=== PATIENT | male | born 1995 | race American Indian/Alaskan Native ===

== ENCOUNTER 2019-07-27 14:23 | Emergency (ER) | payer MEDICAID ==
[~2019-07-27] VITALS: Ht 175.3 cm; Wt 71.0 kg
[~2019-07-27 14:23] MED LIST: FOLI1TAB16 PO; LEVE500T PO; PHEN100C4 PO
[2019-07-27] MEDS ORDERED: LORazepam 2 mg/ml vial IV ONE (14:40)
[2019-07-27] MEDS ORDERED: normal saline 1000ML IV soln IVB ONE (14:40)
[2019-07-27] MEDS ORDERED: magnesium 2GM in 50ml NS 50 ML IV ONE (14:40)
[2019-07-27 15:17] LABS: ALANINE AMINOTRANSFERASE 22 U/L (12-78); ALBUMIN 4.4 G/DL (3.4-5.0); ALBUMIN/GLOBULIN RATIO 1.5 (1.1-1.5); ALKALINE PHOSPHATASE 128 IU/L (46-116); ANION GAP 12 (8-16); ASPARTATE AMINO TRANSFERASE 12 U/L (10-37); BASOPHILS % (AUTO) 0.4 % (0-1); BILIRUBIN,TOTAL 0.3 MG/DL (0.1-1.0); BLOOD UREA NITROGEN 13 MG/DL (7-18); BUN/CREATININE RATIO 16.9 (5.4-32.0); CALCIUM 9.1 MG/DL (8.5-10.1); CHLORIDE 104 MMOL/L (99-107); CREATININE 0.77 MG/DL (0.60-1.10); EOSINOPHILS # (AUTO) 0.1 X10'3 (0-0.9); EOSINOPHILS % (AUTO) 0.8 % (0-6); GLUCOSE 149 MG/DL (70-104); HEMATOCRIT 42.4 % (42.0-52.0); HEMOGLOBIN 14.7 g/dl (14.0-17.9); LYMPHOCYTES # (AUTO) 0.7 X10'3 (1.1-4.8); LYMPHOCYTES % (AUTO) 9.1 % (21-51); MAGNESIUM 1.9 MG/DL (1.5-2.4); MEAN CORPUSCULAR HEMOGLOBIN 31.8 PG (27.0-31.0); MEAN CORPUSCULAR HGB CONC 34.8 g/dL (33.0-36.5); MEAN CORPUSCULAR VOLUME 91.4 FL (78-98); MEAN PLATELET VOLUME 8.1 FL (7.4-10.4); MONOCYTES # (AUTO) 0.5 X10'3 (0-0.9); MONOCYTES % (AUTO) 6.8 % (2-12); NEUTROPHILS # (AUTO) 6.3 X10'3 (1.8-7.7); NEUTROPHILS % (AUTO) 82.9 % (42-75); PLATELET COUNT 190 X10'3 (140-440); POTASSIUM 3.9 MMOL/L (3.5-5.1); RED BLOOD COUNT 4.64 X10'6 (4.70-6.10); RED CELL DISTRIBUTION WIDTH 13.4 % (11.5-14.5); SODIUM 143 MMOL/L (135-145); TOTAL CARBON DIOXIDE 26.9 MMOL/L (24-32); TOTAL PROTEIN 7.3 G/DL (6.4-8.2); WHITE BLOOD COUNT 7.5 X10'3 (4.5-11.0); eGFR > 90 ML/MIN
[2019-07-27 15:18] LABS: ETHANOL < 0.010 GM/DL (0.0-0.010)
--- NOTE | 2019-07-27 16:17 | NUR ---
PT UP AT BEDSIDE VOIDING WITH TECH PRESENT FOR STABILITY.
[2019-07-27 17:12] LABS: CLARITY,URINE CLEAR (Clear); COLOR,URINE YELLOW (Yellow); GLUCOSE, URINE NEGATIVE (Neg); KETONES,URINE NEGATIVE (Neg); LEUKOCYTE ESTERASE ,URINE NEGATIVE (Neg); NITRITES, URINE NEGATIVE (Neg); OCCULT BLOOD,URINE NEGATIVE (Neg); PH,URINE 6.5 (4.8-8.0); PROTEIN,URINE 30 mg/dl (Neg); UROBILINOGEN,URINE 0.2 E.U/dL (0.2-1.0)
[2019-07-27 17:14] LABS: UA COLLECTION TYPE URINAL
[2019-07-27 17:18] LABS: SQUAMOUS EPITHELIAL CELL,UR FEW /LPF (FEW)
[2019-07-27 17:22] LABS: URINE AMPHETAMINE SCREEN NEGATIVE (Neg); URINE BARBITUATE SCREEN NEGATIVE (Neg); URINE BENZODIAZEPINES SCREEN NEGATIVE (Neg); URINE CANNABINOID SCREEN POSITIVE (Neg); URINE COCAINE SCREEN NEGATIVE (Neg); URINE METHADONE SCREEN NEGATIVE (Neg); URINE OPIATE SCREEN NEGATIVE (Neg); URINE PHENCYCLIDINE SCREEN NEGATIVE (Neg)
[2019-07-27 17:24] LABS: BACTERIA,URINE NONE SEEN /HPF (Neg); RBC,URINE NONE SEEN /HPF (0-2); WBC,URINE NONE SEEN /HPF (0-4)
--- NOTE | 2019-07-27 18:20 | NUR ---
Received report from previous RN. Pending pt discharge after 3rd NS IV bolus and 2gm Magnesium sulfate IV administered. Pt and pt's mother updated on current plan of treatment. Sz precautions maintained at this time, side rails, sz pads and bed in lowest position. All questions/concerns addressed at this time.
[2019-07-27 20:03] VITALS: BP 128/66
== END 2019-07-27 20:05 | disposition home or self-care (01) ==
LOC: ER 14:23
DX: G40.909 Epilepsy, unspecified, not intractable, without status epilepticus (principal); Z79.899 Other long term (current) drug therapy
CPT/HCPCS: 36415; 80053; 80305; 80320; 81001; 83735; 85025; 93005; 96365; 96375; 99284; J2060; J3475; J7030

== ENCOUNTER 2023-03-28 21:23 | Emergency (ER) | payer MEDICAID ==
[~2023-03-28] VITALS: Ht 180.3 cm; Wt 77.3 kg
[~2023-03-28 21:23] MED LIST changes: -FOLI1TAB16 PO; +FOLI1TAB27 PO
[2023-03-28 21:31] VITALS: TEMP 97.9
[2023-03-28] MEDS ORDERED: ceFAZolin/D5W- 1GM premix 50 ML IV ONE (22:40)
[2023-03-28] MEDS ORDERED: ceFAZolin 1gm IM kit IM ONE (23:15)
[2023-03-28] MEDS ORDERED: ketorolac trometh. 30mg/ml inj. IV ONE (23:40)
[2023-03-28] MEDS ORDERED: bacitracin 15gm ointment TP ONE (23:40)
[2023-03-28] MEDS ORDERED: ondansetron 4mg rapidly disintigrating tab PO ONE (23:40)
[2023-03-28] MEDS ORDERED: HYDROcodone/acetaminophen 10/325mg tab PO ONE (23:40)
[2023-03-28] MEDS ORDERED: AMOX-115 PO (23:42)
[2023-03-28] MEDS ORDERED: HYDR-3973 PO (23:42)
[2023-03-29 00:01] VITALS: BP 121/75; PULSE 68; RESP 16; O2SAT 99
== END 2023-03-29 00:03 | disposition home or self-care (01) ==
LOC: ER 21:24
DX: S62.630B Displaced fracture of distal phalanx of right index finger, initial encounter for open fracture (principal); Z79.2 Long term (current) use of antibiotics; Z79.899 Other long term (current) drug therapy; W26.8XXA Contact with other sharp object(s), not elsewhere classified, initial encounter; Y93.89 Activity, other specified; Y92.89 Other specified places as the place of occurrence of the external cause; Y99.8 Other external cause status
CPT/HCPCS: 12001; 73140; 96372; 96374; 99284; J0690; J1885

== ENCOUNTER 2023-10-24 10:32 | Emergency (ER) | payer MEDICAID ==
[~2023-10-24] VITALS: Ht 182.9 cm; Wt 80.0 kg
[2023-10-24] MEDS ORDERED: levetiracetam inj 1,000 MG in normal saline 100ml IV soln 90 ML IV ONE (10:50)
[2023-10-24 11:05] LABS: BASOPHILS % (AUTO) 0.1 % (0-1); EOSINOPHILS # (AUTO) 0.1 X10'3 (0-0.9); EOSINOPHILS % (AUTO) 0.3 % (0-6); HEMATOCRIT 46.8 % (42.0-52.0); HEMOGLOBIN 15.4 g/dl (14.0-17.9); LYMPHOCYTES # (AUTO) 1.3 X10'3 (1.1-4.8); LYMPHOCYTES % (AUTO) 5.5 % (21-51); MEAN CORPUSCULAR HEMOGLOBIN 31.6 PG (27.0-31.0); MEAN CORPUSCULAR HGB CONC 32.9 g/dL (33.0-36.5); MEAN CORPUSCULAR VOLUME 96.1 FL (78-98); MONOCYTES # (AUTO) 1.5 X10'3 (0-0.9); MONOCYTES % (AUTO) 6.4 % (2-12); NEUTROPHILS # (AUTO) 20.3 X10'3 (1.8-7.7); NEUTROPHILS % (AUTO) 87.7 % (42-75); PLATELET COUNT 271 X10'3 (140-440); RED BLOOD COUNT 4.87 X10'6 (4.70-6.10); RED CELL DISTRIBUTION WIDTH 13.2 % (11.5-14.5); WHITE BLOOD COUNT 23.2 X10'3 (4.5-11.0)
[2023-10-24 11:21] LABS: BILIRUBIN,URINE NEGATIVE (Neg); CLARITY,URINE CLEAR (Clear); COLOR,URINE YELLOW (Yellow); GLUCOSE, URINE NEGATIVE (Neg); KETONES,URINE NEGATIVE (Neg); LEUKOCYTE ESTERASE ,URINE NEGATIVE (Neg); NITRITES, URINE NEGATIVE (Neg); OCCULT BLOOD,URINE MODERATE (Neg); PROTEIN,URINE 100 mg/dl (Neg); UROBILINOGEN,URINE 0.2 E.U/dL (0.2-1.0)
[2023-10-24] MEDS: levetiracetam inj 1,000 MG in normal saline 100ml IV soln 100 ML IV ONE (11:25)
[2023-10-24 11:26] LABS: ALBUMIN 4.8 G/DL (3.4-5.0); ANION GAP 28 (8-16); BLOOD UREA NITROGEN 12 MG/DL (7-18); CALCIUM 8.6 MG/DL (8.5-10.1); CHLORIDE 102 MMOL/L (99-107); ETHANOL < 10 MG/DL (<10); GLUCOSE 149 MG/DL (70-104); SODIUM 142 MMOL/L (135-145); eGFR 73 ML/MIN
[2023-10-24 11:27] LABS: POTASSIUM 4.3 MMOL/L (3.5-5.1)
[2023-10-24 11:29] VITALS: TEMP 98.2
[2023-10-24 11:29] LABS: UA COLLECTION TYPE STRAIGHT CATH
[2023-10-24 11:29] LABS: TOTAL CARBON DIOXIDE 11.9 MMOL/L (24-32)
[2023-10-24 11:30] LABS: BACTERIA,URINE NONE SEEN /HPF (Neg); MUCUS STRANDS FEW /LPF (Neg); SQUAMOUS EPITHELIAL CELL,UR FEW /LPF (FEW); WBC,URINE 0-4 /HPF (0-4)
[2023-10-24 11:33] LABS: URINE AMPHETAMINE SCREEN NEGATIVE (Neg); URINE BARBITUATE SCREEN NEGATIVE (Neg); URINE BENZODIAZEPINES SCREEN POSITIVE (Neg); URINE CANNABINOID SCREEN POSITIVE (Neg); URINE COCAINE SCREEN NEGATIVE (Neg); URINE METHADONE SCREEN NEGATIVE (Neg); URINE OPIATE SCREEN NEGATIVE (Neg); URINE PHENCYCLIDINE SCREEN NEGATIVE (Neg)
[2023-10-24 12:40] LABS: CREATINE KINASE 124 U/L (39-308)
[2023-10-24] MEDS: normal saline 1000ml 1,000 ML IV ONE ×2 (13:32→13:33)
[2023-10-24] MEDS: ondansetron/PF 4mg/2ml inj IV ONE (17:23)
[2023-10-24 17:55] LABS: ALBUMIN 4.3 G/DL (3.4-5.0); ANION GAP 10 (8-16); BLOOD UREA NITROGEN 12 MG/DL (7-18); BUN/CREATININE RATIO 12.6 (10.0-20.0); CALCIUM 8.3 MG/DL (8.5-10.1); CHLORIDE 107 MMOL/L (99-107); CREATININE 0.95 MG/DL (0.60-1.10); GLUCOSE 117 MG/DL (70-104); POTASSIUM 4.1 MMOL/L (3.5-5.1); SODIUM 143 MMOL/L (135-145); eCRCL 129 ML/MIN; eGFR > 90 ML/MIN
[2023-10-24] MEDS ORDERED: LAMO200T10 PO (18:26)
[2023-10-24] MEDS ORDERED: PHEN100C4 PO (18:26)
[2023-10-24] MEDS ORDERED: LAMO200T2 PO (18:26)
[2023-10-24] MEDS ORDERED: LACO100T2 PO (18:27)
[2023-10-24] MEDS ORDERED: KEP500T PO (18:27)
[2023-10-24] MEDS ORDERED: ONDA4TAB12 PO (18:29)
[2023-10-24 19:07] VITALS: BP 118/70; PULSE 77; RESP 16; O2SAT 97
== END 2023-10-24 19:09 | disposition home or self-care (01) ==
LOC: ER 10:32
DX: R56.9 Unspecified convulsions (principal); J45.909 Unspecified asthma, uncomplicated; E11.9 Type 2 diabetes mellitus without complications; E78.00 Pure hypercholesterolemia, unspecified; Z86.73 Personal history of transient ischemic attack (TIA), and cerebral infarction without residual deficits; J44.9 Chronic obstructive pulmonary disease, unspecified; I25.2 Old myocardial infarction; Z79.899 Other long term (current) drug therapy
CPT/HCPCS: 36415; 71045; 80048; 80305; 80320; 81001; 82550; 82948; 83880; 84145; 84484; 85025; 93005; 96365; 96366; 96375; 99285; J1953; J2405; J3490; J7030; C1758

== ENCOUNTER 2024-01-28 19:14 | Inpatient (IN) | payer MEDICAID ==
[~2024-01-28] VITALS: Ht 175.3 cm; Wt 76.0 kg
[~2024-01-28 19:14] MED LIST changes: +KEP500T PO; +LACO100T2 PO; +LAMO200T10 PO; +ONDA4TAB12 PO
[2024-01-28 20:34] LABS: URINE AMPHETAMINE SCREEN NEGATIVE (Neg); URINE BARBITUATE SCREEN NEGATIVE (Neg); URINE BENZODIAZEPINES SCREEN NEGATIVE (Neg); URINE CANNABINOID SCREEN POSITIVE (Neg); URINE COCAINE SCREEN NEGATIVE (Neg); URINE METHADONE SCREEN NEGATIVE (Neg); URINE PHENCYCLIDINE SCREEN NEGATIVE (Neg)
[2024-01-28] MEDS: normal saline 1000ML IV soln IVB ONE (20:35)
[2024-01-28 20:39] LABS: BASOPHILS % (AUTO) 0.1 % (0-1); EOSINOPHILS % (AUTO) 0.1 % (0-6); HEMATOCRIT 42.6 % (42.0-52.0); HEMOGLOBIN 14.1 g/dl (14.0-17.9); LYMPHOCYTES # (AUTO) 0.6 X10'3 (1.1-4.8); LYMPHOCYTES % (AUTO) 3.7 % (21-51); MEAN CORPUSCULAR HEMOGLOBIN 30.3 PG (27.0-31.0); MEAN CORPUSCULAR HGB CONC 33.2 g/dL (33.0-36.5); MEAN CORPUSCULAR VOLUME 91.3 FL (78-98); MEAN PLATELET VOLUME 7.8 FL (7.4-10.4); MONOCYTES # (AUTO) 0.5 X10'3 (0-0.9); MONOCYTES % (AUTO) 3.3 % (2-12); NEUTROPHILS # (AUTO) 14.8 X10'3 (1.8-7.7); NEUTROPHILS % (AUTO) 92.8 % (42-75); PLATELET COUNT 227 X10'3 (140-440); RED BLOOD COUNT 4.67 X10'6 (4.70-6.10); WHITE BLOOD COUNT 15.9 X10'3 (4.5-11.0)
[2024-01-28 20:49] LABS: ALBUMIN 4.3 G/DL (3.4-5.0); ANION GAP 11 (8-16); BLOOD UREA NITROGEN 12 MG/DL (7-18); BUN/CREATININE RATIO 11.4 (10.0-20.0); CALCIUM 9.6 MG/DL (8.5-10.1); CHLORIDE 102 MMOL/L (99-107); CREATININE 1.05 MG/DL (0.60-1.10); ETHANOL < 10 MG/DL (<10); GLUCOSE 115 MG/DL (70-104); POTASSIUM 3.9 MMOL/L (3.5-5.1); SODIUM 138 MMOL/L (135-145); TOTAL CARBON DIOXIDE 24.7 MMOL/L (24-32); eCRCL 107 ML/MIN; eGFR 85 ML/MIN
[2024-01-28] MEDS: diazepam inj 5 MG/ML inj. IV ONE (20:52)
[2024-01-28] MEDS: levetiracetam inj 1,000 MG in normal saline 100ml IV soln 100 ML IV ONE (20:54)
[2024-01-29] MEDS ORDERED: levetiracetam inj 2,000 MG in normal saline 100ml IV soln 100 ML IV ONE (01:00)
[2024-01-29] MEDS: MIDAZolam 5mg/ml 2ml vial IV ONE (01:04)
[2024-01-29] MEDS: levetiracetam inj 2,000 MG in normal saline 250ml IV soln 250 ML IV ONE (01:39)
[2024-01-29] MEDS ORDERED: magnesium 4gm in 100ml NS 100 ML IV PRN (03:00)
[2024-01-29] MEDS ORDERED: magnesium hydroxide 30ml (MOM) UD suspension PO PRN (03:00)
[2024-01-29] MEDS ORDERED: magnesium Cl slow-release 64mg tablet PO PRN (03:00)
[2024-01-29] MEDS ORDERED: mag hydrox/Alum hydrox/simeth 30ml oral suspension PO PRN (03:00)
[2024-01-29] MEDS ORDERED: potassium Cl 40MEQ/1/2NS 520ml 520 ML IV PRN (03:00)
[2024-01-29] MEDS ORDERED: potassium Cl 20 mEq SR tablet PO PRN (03:00)
[2024-01-29] MEDS ORDERED: magnesium 2GM in 50ml NS 50 ML IV PRN (03:00)
[2024-01-29] MEDS ORDERED: acetaminophen 325mg tablet PO PRN (03:00)
[2024-01-29] MEDS: normal saline 1000ml 1,000 ML IV SCH (03:09)
[2024-01-29] MEDS ORDERED: diazepam inj 5 MG/ML inj. IV PRN (04:00)
[2024-01-29 04:17] LABS: MAGNESIUM 2.1 MG/DL (1.5-2.4)
[2024-01-29 04:20] LABS: POTASSIUM 4.1 MMOL/L (3.5-5.1)
[2024-01-29 04:21] LABS: PHENYTOIN (DILANTIN) < 0.5 UG/ML (10.0-20.0)
[2024-01-29 07:40] VITALS: BP 117/55; PULSE 79; RESP 18; TEMP 98.9; O2SAT 97
[2024-01-29 08:00] VITALS: RESP 16; O2SAT 97
[2024-01-29] MEDS: docusate sod 100mg capsule PO SCH (08:00)
[2024-01-29] MEDS: phenytoin sod ER 100mg capsule PO SCH (08:00)
[2024-01-29] MEDS: K and/or MAG REPLACEMENT MC SCH (08:00)
[2024-01-29] MEDS: levetiracetam 250mg tablet PO SCH (08:09)
[2024-01-29] MEDS: lamoTRIgine 100mg tablet PO SCH (08:09)
[2024-01-29 12:30] VITALS: BP 137/75; PULSE 56; RESP 16; TEMP 98.7; O2SAT 95
[2024-01-29] MEDS ORDERED: LORazepam 2 mg/ml vial IV SCH (12:30)
[2024-01-29] MEDS ORDERED: midazolam 1 mg/ML 2ml injection IV SCH (12:37)
[2024-01-29] MEDS: diazepam inj 5 MG/ML inj. IV SCH (12:59)
[2024-01-29] MEDS: ringers solution, lacted 1,000 ML IV SCH (13:00)
[2024-01-29] MEDS: ringers solution, lacted 1,000 ML IV ONE (13:43)
[2024-01-29] MEDS: CefTRIAXone/D5W-Rocephin 1gm 50 ML IV SCH (13:55)
[2024-01-29 14:41] LABS: ALANINE AMINOTRANSFERASE 21 U/L (12-78); ALBUMIN 3.7 G/DL (3.4-5.0); ALBUMIN/GLOBULIN RATIO 1.2 (1.1-1.5); ALKALINE PHOSPHATASE 79 IU/L (46-116); ANION GAP 7 (8-16); ASPARTATE AMINO TRANSFERASE 6 U/L (10-37); BILIRUBIN,TOTAL 0.7 MG/DL (0.1-1.0); BLOOD UREA NITROGEN 10 MG/DL (7-18); BUN/CREATININE RATIO 15.4 (10.0-20.0); CALCIUM 8.4 MG/DL (8.5-10.1); CHLORIDE 103 MMOL/L (99-107); CREATININE 0.65 MG/DL (0.60-1.10); GLUCOSE 103 MG/DL (70-104); POTASSIUM 3.3 MMOL/L (3.5-5.1); SODIUM 136 MMOL/L (135-145); TOTAL CARBON DIOXIDE 26.4 MMOL/L (24-32); TOTAL PROTEIN 6.8 G/DL (6.4-8.2); eCRCL 172 ML/MIN; eGFR > 90 ML/MIN
[2024-01-29 14:44] LABS: CREATINE KINASE 128 U/L (39-308); PHOSPHORUS 2.6 MG/DL (2.3-4.5); THYROID STIMULATING HORMONE 0.41 ulU/ml (0.34-4.50)
[2024-01-29 14:45] LABS: PHENYTOIN (DILANTIN) < 0.5 UG/ML (10.0-20.0)
[2024-01-29 15:57] LABS: BILIRUBIN,URINE NEGATIVE (Neg); CLARITY,URINE CLEAR (Clear); COLOR,URINE STRAW (Yellow); GLUCOSE, URINE NEGATIVE (Neg); KETONES,URINE NEGATIVE (Neg); LEUKOCYTE ESTERASE ,URINE NEGATIVE (Neg); NITRITES, URINE NEGATIVE (Neg); OCCULT BLOOD,URINE TRACE-INTACT (Neg); PROTEIN,URINE NEGATIVE (Neg); UROBILINOGEN,URINE 0.2 E.U/dL (0.2-1.0)
[2024-01-29 16:14] LABS: UA COLLECTION TYPE CLN CATCH MIDSTREAM
[2024-01-29 16:15] LABS: BACTERIA,URINE NONE SEEN /HPF (Neg); SQUAMOUS EPITHELIAL CELL,UR FEW /LPF (FEW)
[2024-01-29 16:16] LABS: RBC,URINE 0-2 /HPF (0-2); WBC,URINE 0-4 /HPF (0-4)
[2024-01-29] MEDS: potassium Cl 20 mEq SR tablet PO PRN (16:39)
[2024-01-29 18:00] VITALS: BP 125/66; PULSE 64; RESP 16; TEMP 98.6; O2SAT 98
[2024-01-29 22:00] VITALS: BP 114/60; PULSE 65; RESP 16; TEMP 98.1; O2SAT 97
[2024-01-30 06:41] LABS: BASOPHILS % (AUTO) 0.3 % (0-1); EOSINOPHILS # (AUTO) 0.1 X10'3 (0-0.9); HEMATOCRIT 41.9 % (42.0-52.0); HEMOGLOBIN 13.9 g/dl (14.0-17.9); LYMPHOCYTES # (AUTO) 1.5 X10'3 (1.1-4.8); LYMPHOCYTES % (AUTO) 17.5 % (21-51); MEAN CORPUSCULAR HEMOGLOBIN 30.8 PG (27.0-31.0); MEAN CORPUSCULAR HGB CONC 33.2 g/dL (33.0-36.5); MEAN CORPUSCULAR VOLUME 92.7 FL (78-98); MEAN PLATELET VOLUME 8.3 FL (7.4-10.4); MONOCYTES # (AUTO) 0.8 X10'3 (0-0.9); MONOCYTES % (AUTO) 9.1 % (2-12); NEUTROPHILS # (AUTO) 6.2 X10'3 (1.8-7.7); NEUTROPHILS % (AUTO) 72.1 % (42-75); PLATELET COUNT 174 X10'3 (140-440); RED BLOOD COUNT 4.52 X10'6 (4.70-6.10); RED CELL DISTRIBUTION WIDTH 13.1 % (11.5-14.5); WHITE BLOOD COUNT 8.6 X10'3 (4.5-11.0)
[2024-01-30 07:04] LABS: ALANINE AMINOTRANSFERASE 25 U/L (12-78); ALBUMIN 3.6 G/DL (3.4-5.0); ALBUMIN/GLOBULIN RATIO 1.1 (1.1-1.5); ALKALINE PHOSPHATASE 74 IU/L (46-116); ANION GAP 7 (8-16); ASPARTATE AMINO TRANSFERASE 10 U/L (10-37); BILIRUBIN,TOTAL 0.7 MG/DL (0.1-1.0); BLOOD UREA NITROGEN 7 MG/DL (7-18); BUN/CREATININE RATIO 9.3 (10.0-20.0); CALCIUM 8.7 MG/DL (8.5-10.1); CHLORIDE 107 MMOL/L (99-107); CREATININE 0.75 MG/DL (0.60-1.10); GLUCOSE 90 MG/DL (70-104); MAGNESIUM 1.9 MG/DL (1.5-2.4); POTASSIUM 3.9 MMOL/L (3.5-5.1); SODIUM 141 MMOL/L (135-145); TOTAL CARBON DIOXIDE 26.8 MMOL/L (24-32); TOTAL PROTEIN 6.9 G/DL (6.4-8.2); eCRCL 149 ML/MIN; eGFR > 90 ML/MIN
[2024-01-30 08:00] VITALS: RESP 16; O2SAT 96
[2024-01-30 10:25] VITALS: BP 120/60; PULSE 72; RESP 16; TEMP 97.9; O2SAT 99
[2024-01-30 17:28] VITALS: BP 120/60; PULSE 72; RESP 16; TEMP 97.9; O2SAT 99
[2024-01-30 18:00] VITALS: BP 120/71; PULSE 63; RESP 16; TEMP 98.3; O2SAT 100
[2024-01-30 22:00] VITALS: BP 123/73; PULSE 60; RESP 19; TEMP 97.7; O2SAT 99
[2024-01-31] MEDS: diazepam 5mg tablet PO SCH (02:33)
[2024-01-31 06:59] LABS: BASOPHILS % (AUTO) 0.5 % (0-1); EOSINOPHILS # (AUTO) 0.1 X10'3 (0-0.9); EOSINOPHILS % (AUTO) 2.1 % (0-6); HEMATOCRIT 42.6 % (42.0-52.0); HEMOGLOBIN 14.7 g/dl (14.0-17.9); LYMPHOCYTES # (AUTO) 1.1 X10'3 (1.1-4.8); LYMPHOCYTES % (AUTO) 20.7 % (21-51); MEAN CORPUSCULAR HEMOGLOBIN 31.1 PG (27.0-31.0); MEAN CORPUSCULAR HGB CONC 34.5 g/dL (33.0-36.5); MEAN CORPUSCULAR VOLUME 90.1 FL (78-98); MEAN PLATELET VOLUME 7.7 FL (7.4-10.4); MONOCYTES # (AUTO) 0.6 X10'3 (0-0.9); MONOCYTES % (AUTO) 10.9 % (2-12); NEUTROPHILS # (AUTO) 3.4 X10'3 (1.8-7.7); NEUTROPHILS % (AUTO) 65.8 % (42-75); PLATELET COUNT 173 X10'3 (140-440); RED BLOOD COUNT 4.73 X10'6 (4.70-6.10); WHITE BLOOD COUNT 5.2 X10'3 (4.5-11.0)
[2024-01-31 07:19] LABS: ALANINE AMINOTRANSFERASE 21 U/L (12-78); ALBUMIN 3.6 G/DL (3.4-5.0); ALBUMIN/GLOBULIN RATIO 1.1 (1.1-1.5); ALKALINE PHOSPHATASE 73 IU/L (46-116); ANION GAP 7 (8-16); ASPARTATE AMINO TRANSFERASE 4 U/L (10-37); BILIRUBIN,TOTAL 0.6 MG/DL (0.1-1.0); BLOOD UREA NITROGEN 9 MG/DL (7-18); BUN/CREATININE RATIO 13.2 (10.0-20.0); CALCIUM 8.7 MG/DL (8.5-10.1); CHLORIDE 106 MMOL/L (99-107); CREATININE 0.68 MG/DL (0.60-1.10); GLUCOSE 91 MG/DL (70-104); MAGNESIUM 1.9 MG/DL (1.5-2.4); POTASSIUM 3.8 MMOL/L (3.5-5.1); SODIUM 140 MMOL/L (135-145); TOTAL CARBON DIOXIDE 26.9 MMOL/L (24-32); TOTAL PROTEIN 6.9 G/DL (6.4-8.2); eCRCL 165 ML/MIN; eGFR > 90 ML/MIN
[2024-01-31 08:00] VITALS: RESP 18; O2SAT 96
[2024-01-31 12:23] VITALS: BP 115/53; PULSE 64; RESP 16; TEMP 97.4; O2SAT 96
[2024-01-31] MEDS ORDERED: LEVE250T PO (13:06)
[2024-01-31] MEDS ORDERED: PHEN100C4 PO (13:06)
[2024-01-31] MEDS ORDERED: LAMO100T PO (13:06)
== END 2024-01-31 13:30 | disposition home or self-care (01) | DRG 720 ==
LOC: ER 19:14 → ED HOLD 01-29 03:01 → ORTHO 4S 01-29 07:35
PROVIDERS: ADMIT Internal Medicine; ATTEND Family Medicine
PROC: 4A00X4Z Measurement of Central Nervous Electrical Activity, External Approach (ICD-10-PCS; principal; 2024-01-29)
DX: A41.9 Sepsis, unspecified organism (principal); F12.10 Cannabis abuse, uncomplicated; G40.909 Epilepsy, unspecified, not intractable, without status epilepticus; T42.6X6A Underdosing of other antiepileptic and sedative-hypnotic drugs, initial encounter; Y92.89 Other specified places as the place of occurrence of the external cause; Z79.899 Other long term (current) drug therapy
CPT/HCPCS: 36415; 70450; 71045; 80048; 80053; 80185; 80305; 80320; 81001; 82550; 82948; 83605; 83735; 84100; 84132; 84443; 85025; 87040; 87081; 93005; 95816; 96365; 96375; 99285; A4620; A6258; A6449; G0378; J0696; J1953; J3360; J3490; J7030; J7050; J7120

== ENCOUNTER 2024-06-03 10:48 | Emergency (ER) | payer MEDICAID ==
[~2024-06-03] VITALS: Ht 180.3 cm; Wt 72.7 kg
[~2024-06-03 10:48] MED LIST changes: -FOLI1TAB27 PO; -KEP500T PO; -LACO100T2 PO; +LAMO100T PO; -LAMO200T10 PO; +LEVE250T PO; -LEVE500T PO; -ONDA4TAB12 PO
[2024-06-03 13:02] VITALS: BP 140/74; PULSE 68; RESP 17; TEMP 98.5; O2SAT 97
== END 2024-06-03 13:04 | disposition home or self-care (01) ==
LOC: ER 10:49
DX: G40.909 Epilepsy, unspecified, not intractable, without status epilepticus (principal)
CPT/HCPCS: 99284

== ENCOUNTER 2024-10-05 11:07 | Emergency (ER) | payer MEDICAID ==
[~2024-10-05] VITALS: Ht 172.7 cm; Wt 75.0 kg
[~2024-10-05 11:07] MED LIST changes: -PHEN100C4 PO
[2024-10-05] MEDS: MIDAZolam 5mg/ml 2ml vial ONE (11:31)
[2024-10-05] MEDS: MIDAZolam 5mg/ml 2ml vial IV ONE (11:32)
[2024-10-05 11:58] LABS: BASOPHILS % (AUTO) 0.2 % (0-1); EOSINOPHILS % (AUTO) 0.1 % (0-6); HEMOGLOBIN 15.3 g/dl (14.0-17.9); LYMPHOCYTES # (AUTO) 0.7 X10'3 (1.1-4.8); LYMPHOCYTES % (AUTO) 3.6 % (21-51); MEAN CORPUSCULAR HEMOGLOBIN 31.8 PG (27.0-31.0); MEAN CORPUSCULAR VOLUME 93.3 FL (78-98); MEAN PLATELET VOLUME 8.2 FL (7.4-10.4); MONOCYTES # (AUTO) 0.8 X10'3 (0-0.9); MONOCYTES % (AUTO) 4.5 % (2-12); NEUTROPHILS # (AUTO) 17.2 X10'3 (1.8-7.7); NEUTROPHILS % (AUTO) 91.6 % (42-75); PLATELET COUNT 241 X10'3 (140-440); RED BLOOD COUNT 4.83 X10'6 (4.70-6.10); RED CELL DISTRIBUTION WIDTH 13.7 % (11.5-14.5); WHITE BLOOD COUNT 18.8 X10'3 (4.5-11.0)
[2024-10-05] MEDS: levetiracetamNACL 1500mg/100mL 100 ML IV STA (11:59)
[2024-10-05] MEDS: normal saline 1000ML IV soln IVB ONE (11:59)
[2024-10-05] MEDS: levetiracetam inj 1,500 MG in normal saline 100ml IV soln 100 ML IV STA (12:00)
[2024-10-05 12:13] LABS: ALANINE AMINOTRANSFERASE 25 U/L (12-78); ALBUMIN 4.7 G/DL (3.4-5.0); ALBUMIN/GLOBULIN RATIO 1.3 (1.1-1.5); ALKALINE PHOSPHATASE 113 IU/L (46-116); ANION GAP 16 (8-16); ASPARTATE AMINO TRANSFERASE 12 U/L (10-37); BILIRUBIN,TOTAL 0.4 MG/DL (0.1-1.0); BLOOD UREA NITROGEN 14 MG/DL (7-18); BUN/CREATININE RATIO 13.9 (10.0-20.0); CALCIUM 9.1 MG/DL (8.5-10.1); CHLORIDE 104 MMOL/L (99-107); CREATININE 1.01 MG/DL (0.60-1.10); GLUCOSE 135 MG/DL (70-104); POTASSIUM 4.1 MMOL/L (3.5-5.1); SODIUM 142 MMOL/L (135-145); TOTAL CARBON DIOXIDE 22.1 MMOL/L (24-32); TOTAL PROTEIN 8.3 G/DL (6.4-8.2); eGFR 89 ML/MIN
[2024-10-05 12:41] LABS: TOTAL CELLS COUNTED 100
[2024-10-05 12:42] LABS: PLATELET ESTIMATE NORMAL
[2024-10-05] MEDS ORDERED: CENO1TAB PO ×2 (12:56→13:29)
[2024-10-05 14:47] VITALS: BP 116/52; PULSE 109; RESP 16; TEMP 98.1; O2SAT 96
== END 2024-10-05 14:49 | disposition home or self-care (01) ==
LOC: ER 11:07
DX: R56.9 Unspecified convulsions (principal)
CPT/HCPCS: 36415; 70450; 80053; 84145; 85007; 85025; 96365; 99285; J1953; J7030; 99291; A4615; A6258; A6446; A6449

== ENCOUNTER 2025-02-10 15:36 | Inpatient (IN) | payer MEDICAID ==
[~2025-02-10] VITALS: Ht 175.3 cm; Wt 72.7 kg
[~2025-02-10 15:36] MED LIST changes: +CENO1TAB PO
[2025-02-10] MEDS: LORazepam 2 mg/ml vial IV ONE (16:19)
[2025-02-10] MEDS: LORazepam 2 mg/ml vial ONE (16:19)
[2025-02-10] MEDS: midazolam 1 mg/ML 2ml injection IV ONE (16:20)
[2025-02-10] MEDS: midazolam 1 mg/ML 2ml injection ONE (16:20)
[2025-02-10 16:32] LABS: ALANINE AMINOTRANSFERASE 28 U/L (12-78); ALBUMIN 4.2 G/DL (3.4-5.0); ALBUMIN/GLOBULIN RATIO 1.2 (1.1-1.5); ALKALINE PHOSPHATASE 112 IU/L (46-116); ANION GAP 26 (8-16); BILIRUBIN,TOTAL 0.8 MG/DL (0.1-1.0); BLOOD UREA NITROGEN 12 MG/DL (7-18); BUN/CREATININE RATIO 10.8 (10.0-20.0); CHLORIDE 101 MMOL/L (99-107); CREATININE 1.11 MG/DL (0.60-1.10); GLUCOSE 164 MG/DL (70-104); SODIUM 141 MMOL/L (135-145); TOTAL PROTEIN 7.8 G/DL (6.4-8.2); eCRCL 100 ML/MIN; eGFR 79 ML/MIN
[2025-02-10 16:36] LABS: BASOPHILS % (AUTO) 0.1 % (0-1); EOSINOPHILS % (AUTO) 0 % (0-6); HEMATOCRIT 40.8 % (42.0-52.0); HEMOGLOBIN 13.5 g/dl (14.0-17.9); LYMPHOCYTES # (AUTO) 0.3 X10'3 (1.1-4.8); LYMPHOCYTES % (AUTO) 1.2 % (21-51); MEAN CORPUSCULAR HEMOGLOBIN 30.6 PG (27.0-31.0); MEAN CORPUSCULAR VOLUME 92.9 FL (78-98); MEAN PLATELET VOLUME 7.8 FL (7.4-10.4); MONOCYTES # (AUTO) 1.3 X10'3 (0-0.9); NEUTROPHILS # (AUTO) 24.3 X10'3 (1.8-7.7); NEUTROPHILS % (AUTO) 93.7 % (42-75); PLATELET COUNT 203 X10'3 (140-440); RED BLOOD COUNT 4.39 X10'6 (4.70-6.10); RED CELL DISTRIBUTION WIDTH 13.6 % (11.5-14.5)
[2025-02-10 16:38] LABS: POTASSIUM 4.2 MMOL/L (3.5-5.1)
[2025-02-10 16:39] LABS: ASPARTATE AMINO TRANSFERASE 20 U/L (10-37)
--- NOTE | 2025-02-10 17:25 | Physician Documentation ---
History of Present Illness ~ Chief Complaint: Seizure Stated Complaint: SEIZURE Time Seen by MD: 15:41 Primary Medical Doctor: [facility], neurologist at [facility] Mode of Arrival: POV HPI 29 year old male brought in after a seizure. His family member is at the bedside reporting that he normally will seize several times per month. He is stable on several antiseizure medications and there have been no changes recently. He has not been ill or febrile. The patient is post-ictal on arrival and nonverbal. Medication Reconciliation Allergies: Coded Allergies: No Known Allergies (Unverified , 06/03/24) Scheduled Cenobamate (Xcopri), 1 TAB PO DAILY Lamotrigine (LaMICtal tablet), 100 MG PO BID Levetiracetam (Levetiracetam), 1,500 MG PO BID Past Medical History Past Medical History: Seizures Past Surgical History: noncontributory Patient History: No Family History of: (CABG) Coronary artery bypass grafting (CAD) Coronary arteriosclerosis (CHF) Congestive heart failure (COPD) Chronic obstructive lung disease (CVA) Cerebrovascular accident (Cancer) Malignant carcinoid tumor (DM Type 2) Diabetes mellitus type 2 (DM Type1) Diabetes mellitus type 1 ([place]) Myocardial infarction (PVD) Peripheral vascular disease (TIA) Transient ischemic attack Alzheimer's disease Aortic aneurysm Asthma Cardiac arrest Hypercholesterolemia Alcohol Use: None Drug Use: none Lives with: Mother Lives In: Home Review of Systems All Other Systems at this time: Reviewed and Negative Physical Exam Vital Signs: RN Vital Signs have been reviewed: Yes, Temperature: 101.8, Heart Rate: 106, Respiratory Rate: 21, BP: 130/74, Pulse Oximetry: 94, Weight: 72.730 Oxygen Flow Rate: 5.0 Physical Exam HEENT: PERRL, moist oral mucosa, EOMI Pulmonary: No respiratory distress Cardiac: RRR, no murmur, rub or gallop GI: nondistended, soft, nontender, no guarding, no rebound MSK: no deformity Skin: w/d/i, no rash Neuro: post - ictal, nonfocal Progress Results/Orders Reviewed/noted all lab results: Yes Results/Orders Orders - MUNIR JEAN MD Cbc/Diff (02/10/25 16:07) Urinalysis, Cult If Indicated (02/10/25 16:07) Chest,Single View (02/10/25 16:07) Man Diff (02/10/25 13:25) Page Hospitalist (02/10/25 17:12) Completed Orders - MUNIR JEAN MD Lorazepam Inj (Ativan Inj) (02/10/25 15:40) Lorazepam Inj (Ativan Inj) (02/10/25 15:50) Midazolam 1 Mg/Ml 2ml Inj. (Versed 1 Mg/ (02/10/25 15:54) Phenobarbital Inj (Phenobarbital Inj.) (02/10/25 15:55) Midazolam 5 Mg/Ml 2ml Inj (Versed 5 Mg/M (02/10/25 16:00) CMP (02/10/25 16:07) Midazolam 1 Mg/Ml 2ml Inj. (Versed 1 Mg/ (02/10/25 16:20) Medications Received in ER Medications (Trade) Dose Ordered Sig/Amy Route PRN Reason Start Time Stop Time Status Last Admin Dose Admin (Ativan inj) 2 mg ONCE ONCE IV 02/10/25 15:40 02/10/25 15:41 DC 02/10/25 16:19 2 MG Phenobarbital Sodium 1000 mg/ Sodium Chloride 257.6923 ml @ 250 mls/hr ONCE ONCE IV 02/10/25 15:55 02/10/25 16:56 DC 02/10/25 16:40 250 MLS/HR (VERSED 1 MG/ML 2 ML inj.) 2 mg ONCE ONCE IV 02/10/25 16:20 02/10/25 16:21 DC 02/10/25 16:20 2 MG Vital Signs 02/10/25 02/10/25 02/10/25 02/10/25 15:38 17:06 17:13 17:13 Temp 101.8 Pulse 114 106 Resp 26 21 B/P (MAP) 115/58 130/74 (92) Pulse Ox 97 99 94 O2 Delivery Nasal Cannula* O2 Flow Rate 5.0 4 FiO2 N/A Laboratory Tests Test 02/10/25 13:25 02/10/25 16:04 02/10/25 16:12 White Blood Count 26.0 *H Red Blood Count 4.39 L Hemoglobin 13.5 L Hematocrit 40.8 L Mean Corpuscular Volume 92.9 Mean Corpuscular Hemoglobin 30.6 Mean Corpuscular Hemoglobin Concent 33.0 Red Cell Distribution Width 13.6 Platelet Count 203 Mean Platelet Volume 7.8 Neutrophils (%) (Auto) 93.7 H Lymphocytes (%) (Auto) 1.2 L Monocytes (%) (Auto) 5.0 Eosinophils (%) (Auto) 0 Basophils (%) (Auto) 0.1 Neutrophils # (Auto) 24.3 H Lymphocytes # (Auto) 0.3 L Monocytes # (Auto) 1.3 H Eosinophils # (Auto) 0.0 Basophils # (Auto) 0.0 CBC Comment Basophilic Stippling Sodium Level 141 Potassium Level 4.2 Chloride Level 101 Carbon Dioxide Level 14.5 *L Anion Gap 26 H Blood Urea Nitrogen 12 Creatinine 1.11 H Estimated GFR/1.73 m2 79 BUN/Creatinine Ratio 10.8 Glucose Level 164 H Calcium Level 9.0 Total Bilirubin 0.8 Aspartate Amino Transf (AST/SGOT) 20 Alanine Aminotransferase (ALT/SGPT) 28 Alkaline Phosphatase 112 Total Protein 7.8 Albumin 4.2 Globulin 3.6 Albumin/Globulin Ratio 1.2 Chemistry Comments Glucometer 159 H Medical Decision Making Findings 29 year old male with seizure activity, initially post-ictal. Patient then seized and was provided with several medications which briefly broke his seizure but required escalating medications until a phenobarbital drip was provided. Met status epilepticus criteria and I will transfer care to hospitalist for further workup. His labs thus far have demonstrated the expected elevation in WBC but CXR and UA pending, no electrolyte abnormalities. This patient required 30 minutes of critical care time part from separately billable procedures for airway and oxygenation management, seizure control, and frequent reassessment. Differential Dx:Considerations: Include: Psychogenic seizure, Due to alcohol withdrawl, Due to closed head injury, Due to drug ingestion, Due to hypoglycemia, Due to hyponatremia, Due to hypoxemia, Due to mass lesion, Syncope, Encephalopathy, Epilepsy-break through, Epilepsy-status Departure Disposition: ADMITTED INPATIENT Admitted to Inpatient Unit: to hospitalist Admission Level of Care: Med/Surg Impression: Primary Impression: Breakthrough seizure Additional Impression: Leukocytosis Condition: Stable Discharge Instructions: Seizure, Adult Referrals: NO PRIMARY CARE PROVIDER (PCP) Education Educated: Family Educated regarding: diagnosis, treatment, prognosis, need for follow up Signature Scribe Signature: . Attestation: . MUNIR JEAN MD Feb 10, 2025 17:25
[2025-02-10 17:30] LABS: PLATELET ESTIMATE NORMAL; TOTAL CELLS COUNTED 100
[2025-02-10] MEDS ORDERED: LAMO200T10 PO (17:30)
[2025-02-10] MEDS ORDERED: LEVE750T PO (17:30)
[2025-02-10] MEDS ORDERED: CENO200T PO (17:30)
[2025-02-10 17:43] LABS: TOTAL CARBON DIOXIDE 14.5 MMOL/L (24-32)
[2025-02-10] MEDS ORDERED: magnesium Cl slow-release 64mg tablet PO PRN (17:45)
[2025-02-10] MEDS ORDERED: magnesium sulf-water 4G/100mL 100 ML IV PRN (17:45)
[2025-02-10] MEDS ORDERED: HYDROcodone/acetaminophen 10/325mg tab PO PRN (17:45)
[2025-02-10] MEDS ORDERED: HYDROcodone/acetaminophen 5mg/325mg tablet PO PRN (17:45)
[2025-02-10] MEDS ORDERED: acetaminophen 325mg tablet PO PRN ×2 (17:45)
[2025-02-10] MEDS ORDERED: mag hydrox/Alum hydrox/simeth 30ml oral suspension PO PRN (17:45)
[2025-02-10] MEDS ORDERED: potassium Cl 20 mEq SR tablet PO PRN ×2 (17:45)
[2025-02-10] MEDS ORDERED: magnesium sulf-water 2g/50mL 50 ML IV PRN (17:45)
[2025-02-10] MEDS ORDERED: ondansetron/PF 4mg/2ml inj IV PRN (17:45)
[2025-02-10] MEDS ORDERED: potassium Cl 40MEQ/1/2NS 520ml 520 ML IV PRN (17:45)
[2025-02-10] MEDS ORDERED: sodium bicarbonate 1meq/ml inj 150 ML in sodium chloride 0.45% 1,000 ML IV SCH (17:55)
[2025-02-10] MEDS ORDERED: LORazepam 2 mg/ml vial IV PRN (18:00)
--- NOTE | 2025-02-10 18:18 | HISTORY AND PHYSICAL-Residence ---
History & Physical Providers to CC Resident Creating Document: RENETTA DUMONT RES ~ History of Present Illness Primary Medical Doctor: Sandra GUAMAN, neurologist at [facility] Reason for Admit\Complaint: SEIZURES History of Present Illness Patient is nonverbal and postictal unable to provide a history at this time. History gathered from ED sign-out and JOSÉ Kulkarni taking care of him. 29-year-old male with history of seizures presented the ED after having an episode of seizure at home. He came in this afternoon, seizures started earlier this morning at 6:00 a.m. actively seizing and has been having episodes of status epilepticus, has had 3 episodes of status epilepticus in the ED so far last episode was at 3:56 p.m.. He missed his dose of antiseizure medications last night and this morning. Received 5 mg intranasal Versed, 2 mg Ativan, 2 mg of Versed and 1 g phenobarbital drip x1. He had a temperature of 101.1 on arrival. He is currently shivering and has had multiple episodes of incontinence during the seizure episodes. Takes levetiracetam 750 (2) tablets p.o. b.i.d., lamotrigine 200 p.o. b.i.d. and xcorpi 200 p.o. daily. Allergies: Coded Allergies: No Known Allergies (Unverified , 06/03/24) Home Medications Home Medications Active Reported Levetiracetam 750 Mg Tablet 2 Tab PO BID Xcopri (Cenobamate) 200 Mg Tablet Lamotrigine 200 Mg Tablet 1 Tab PO BID Past Medical History Past Medical History Seizures Past Surgical History Surgical History Comment None Family History Family History: No Family History of: (CABG) Coronary artery bypass grafting (CAD) Coronary arteriosclerosis (CHF) Congestive heart failure (COPD) Chronic obstructive lung disease (CVA) Cerebrovascular accident (Cancer) Malignant carcinoid tumor (DM Type 2) Diabetes mellitus type 2 (DM Type1) Diabetes mellitus type 1 ([place]) Myocardial infarction (PVD) Peripheral vascular disease (TIA) Transient ischemic attack Alzheimer's disease Aortic aneurysm Asthma Cardiac arrest Hypercholesterolemia Past Social History Alcohol Use: None Drug Use: None Lives with: Mother Lives In: Home ROS All Other Systems: Reviewed and Negative ROS Reviewed in full. All negative except for pertinent positive HPI. Exam Vitals: Vital Signs Date Time Temp Pulse Resp B/P (MAP) Pulse Ox O2 Delivery O2 Flow Rate FiO2 02/10/25 17:13 02/10/25 17:13 94 Nasal Cannula* 4 N/A 02/10/25 17:06 106 21 02/10/25 15:38 101.8 General: General: Postictal and nonverbal HEENT: Conjunctiva pink, Sclera clear, Mucus Membranes moist. Neck: Supple without masses and tenderness. Resp: Unlabored. Equal breath sounds bilaterally. Heart: Regular rhythm, normal S1 and S2, no rub, murmur or gallop. Abdomen: Soft and non tender no organomegaly. Normal bowel sounds x4 quadrant normoactive. No guarding or rigidity. Extremities: Normal ROM, no swelling, nontender. No cyanosis,clubbing or edema. CTC OPERATOR: Unable to determine Skin: Warm and Dry. Diagnostic Data Last Recorded Lab Results: 02/10/25 1325 02/10/25 1604 Advance Care Planning Advanced Care plannin - 30 Minutes Additional Plan 29-year-old male with history of seizures presented the ED after having an episode of seizure at home. He came in earlier this morning at 6:00 a.m. actively seizing and has been having episodes of status epilepticus, has had six episodes of far last episode was at 3:56 p.m.. Active seizures Multiple episodes of status epilepticus in the ED History of epilepsy Elevated anion gap metabolic acidosis Significantly elevated white count Missed his anti seizure medications last night and this morning Takes levetiracetam 1500 mg p.o. b.i.d., X cor be 200 p.o. daily. and lamotrigine 200 p.o. b.i.d. Received 5 mg intranasal Versed, 2 mg Ativan, 2 mg IV Versed and 1 g phenobarbital drip x1 in the ED He is currently postictal and nonverbal IV Ativan Q 5 minutes p.r.n. for active seizures Consulted telemetry neurology, appreciate recommendations Follow up with head CT, UA, U TOX, EEG Awaiting med rec Code Status: Full code DVT prophylaxis: None Analgesia/sedation: None Line/tube: PIV GI prophylaxis: None Prognosis: Guarded Disposition: Continue medical management. Patient is high risk for floor admit, awaiting telemetry neurology and ICU consult. If cleared by both then he can be transferred to the floor else will need to be transferred to the ICU for continuous monitoring. Renetta Dumont MD. IM Resident PGY-2 Date of Service: Feb 10, 2025 Billing Provider: HARJINDER HANCOCK MD,RENETTA, RES Feb 10, 2025 18:18
--- NOTE | 2025-02-10 18:20 | RADIOLOGY REPORT ---
CHEST RADIOGRAPH REASON FOR EXAM: seizure COMPARISON: DI CHEST,SINGLE VIEW on DOS: 01/29/24, DI CHEST,SINGLE VIEW on DOS: 10/24/23 TECHNIQUE: One view of the chest is provided FINDINGS: The cardiomediastinal silhouette is within normal limits for technique. There is no focal a irspace disease. There is no significant pleural effusion. No acute bony abnormality is identified. IMPRESSION: No radiographic evidence of acute cardiopulmonary process.
[2025-02-10 18:32] LABS: ABG HCO3 20.9 mmol/L (21.0-28.0); ABG OXYGEN SATURATION 95.8 % (94.0-98.0); ABG PCO2 (T) 32.7 mmHg (35.0-48.0); ABG PO2 (T) 85.1 mmHg (83.0-108.0); ALLEN'S TEST Modified; FHHb 4.2 % (0.0-5.0); FMetHb 0.1 % (0.0-1.5); FO2Hb 95.7 % (94.0-98.0); MODE ROOM AIR; PATIENT TEMPERATURE 38.8; TOTAL HEMOGLOBIN 13.5 G/dl (13.5-17.5)
[2025-02-10] MEDS: MIDAZolam 5mg/ml 2ml vial IM ONE (18:39)
[2025-02-10] MEDS: acetaminophen 1,000mg/100ml IV 100 ML IV SCH (18:45)
[2025-02-10] MEDS: levetiracetamNACL 1500mg/100mL 100 ML IV SCH (18:49)
[2025-02-10 19:31] LABS: ALBUMIN 3.1 G/DL (3.4-5.0); ANION GAP 10 (8-16); BLOOD UREA NITROGEN 8 MG/DL (7-18); BUN/CREATININE RATIO 10.1 (10.0-20.0); CALCIUM 7.1 MG/DL (8.5-10.1); CHLORIDE 109 MMOL/L (99-107); CREATININE 0.79 MG/DL (0.60-1.10); GLUCOSE 111 MG/DL (70-104); POTASSIUM 3.5 MMOL/L (3.5-5.1); SODIUM 142 MMOL/L (135-145); TOTAL CARBON DIOXIDE 22.6 MMOL/L (24-32); eCRCL 140 ML/MIN; eGFR > 90 ML/MIN
--- NOTE | 2025-02-10 19:34 | RADIOLOGY REPORT ---
EXAM: CT Head Without Intravenous Contrast CLINICAL INDICATION: SEIZURES TECHNIQUE: Axial computed tomography images of the head/brain without intravenous contrast. This CT exam was performed using one or more of the following dose reduction techniques: automated exposure control, adjustment of the mA and/or kV according to patient size, and/or use of iterative reconstru ction technique. CONTRAST: COMPARISON: None FINDINGS: BRAIN AND EXTRA-AXIAL SPACES: No acute intracranial hemorrhage, midline shift or mass effect. If sy mptoms persist, further evaluation with MRI is recommended. No significant white matter disease. BONES/JOINTS: Unremarkable. No acute fracture. SOFT TISSUES: Unremarkable. SINUSES: Unremarkable as visualized. No acute sinusitis. MASTOID AIR CELLS: Unremarkable as visualized. No mastoid effusion. OTHER FINDINGS: . . IMPRESSION: No acute intracranial hemorrhage, midline shift or mass effect. If symptoms persist, further evaluat ion with MRI is recommended.
--- NOTE | 2025-02-10 19:58 | CONSULTATION REPORT ---
History of Present Illness Providers to CC Multiple episodes of seizure and altered mental status.~ Reason for Admit\Admit Dx: SEIZURES Refering MD: Sandra GUAMAN, neurologist at [facility] History of Present Illness Reviewed H&P by the resident. I also talked to the patient's father and the RN taking care of the patient. He is well-known to be noncompliant with his seizure drugs. He is on 3 seizure medications as described. He had seizures earlier in the day at home at least 3 and 1 while driving to the ER.Reviewed H&P by the resident. I also talked to the patient's father and the RN taking care of the patient. He is well-known to be noncompliant with his seizure drugs. He is on 3 seizure medications as described. He had seizures earlier in the day at home at least 3 and 1 while driving to the ER. Also suffered 3 seizures in the ED requiring multiple doses of benzos and phenobarbital. He has had no seizures after 4 PM. Reviewed labs Has acidosis possibly being postictal with lactate accumulation. But more significantly has got a white count of 26. Rest of the chemistry look normal. CT scan pending results at this time. Teleneurology consult requested again. Also suffered 3 seizures in the ED requiring multiple doses of benzos and phenobarbital. He has had no seizures after 4 PM. Reviewed labs Has acidosis possibly being postictal with lactate accumulation. But more significantly has got a white count of 26. Rest of the chemistry look normal. CT scan pending results at this time. Teleneurology consult requested again. Allergies: Coded Allergies: No Known Allergies (Unverified , 06/03/24) Home Medications Home Medications Active Reported Levetiracetam 750 Mg Tablet 2 Tab PO BID Xcopri (Cenobamate) 200 Mg Tablet Lamotrigine 200 Mg Tablet 1 Tab PO BID Past Family History Family History: No Family History of: (CABG) Coronary artery bypass grafting (CAD) Coronary arteriosclerosis (CHF) Congestive heart failure (COPD) Chronic obstructive lung disease (CVA) Cerebrovascular accident (Cancer) Malignant carcinoid tumor (DM Type 2) Diabetes mellitus type 2 (DM Type1) Diabetes mellitus type 1 ([place]) Myocardial infarction (PVD) Peripheral vascular disease (TIA) Transient ischemic attack Alzheimer's disease Aortic aneurysm Asthma Cardiac arrest Hypercholesterolemia Physical Exam Last Vital Signs Recorded: Temperature: 103.3, Source: Oral, Heart Rate: 88, Respiratory Rate: 16, BP: 115/70, Pulse Oximetry: 92, Weight: 72.730 Results Diagram Lab Result Diagram: 02/10/25 1325 02/10/25 1900 Assessment/Plan Additional Plan Status epilepticus Remains with maintained airways at this point Leukocytosis Postictal status Acidosis likely lactate accumulation Plan He is started on his IV Keppra. He also received phenobarbital Will also add phenytoin if seizures persist He will need close observation in the ICU Will keep him n.p.o. Due to the high white count I will empirically start him on a dose of Vanco and ceftriaxone. Continue IV fluids. Will Will admit to the ICU RAJESH PRICE MD Feb 10, 2025 19:58
[2025-02-10] MEDS ORDERED: vancomycin/NS 1 GM ADD-VANTAGE 250 ML IV SCH (20:00)
[2025-02-10] MEDS: lamoTRIgine 100mg tablet PO SCH (20:00)
[2025-02-10] MEDS: K and/or MAG REPLACEMENT MC SCH (20:00)
[2025-02-10] MEDS: ringers solution, lacted 1,000 ML IV SCH (20:10)
[2025-02-10] MEDS: ringers solution, lacted 1,000 ML IV ONE (20:10)
[2025-02-10] MEDS: CefTRIAXone/D5W-Rocephin 1gm 50 ML IV ONE (20:46)
[2025-02-10 21:02] LABS: BILIRUBIN,URINE NEGATIVE (Neg); CLARITY,URINE CLEAR (Clear); COLOR,URINE YELLOW (Yellow); GLUCOSE, URINE NEGATIVE (Neg); KETONES,URINE NEGATIVE (Neg); LEUKOCYTE ESTERASE ,URINE NEGATIVE (Neg); NITRITES, URINE NEGATIVE (Neg); OCCULT BLOOD,URINE SMALL (Neg); PROTEIN,URINE NEGATIVE (Neg); UROBILINOGEN,URINE 0.2 E.U/dL (0.2-1.0)
[2025-02-10 21:09] LABS: UA COLLECTION TYPE CLN CATCH MIDSTREAM
[2025-02-10 21:19] LABS: BACTERIA,URINE NONE SEEN /HPF (Neg); RBC,URINE 0-2 /HPF (0-2); SQUAMOUS EPITHELIAL CELL,UR FEW /LPF (FEW); WBC,URINE NONE SEEN /HPF (0-4)
[2025-02-10] MEDS: VANCOMYCIN 1.75GM/WATER FOR INJ (PEG) 350 ML IVPB IV ONE (21:51)
[2025-02-10 22:00] VITALS: BP 110/40; PULSE 93; RESP 20; O2SAT 95
[2025-02-10 22:10] VITALS: RESP 20; O2SAT 95
[2025-02-10 22:26] VITALS: O2SAT 96
[2025-02-10 23:00] VITALS: BP 126/49; PULSE 96; RESP 20; O2SAT 95
[2025-02-11] VITALS (15 sets, daily range): BP systolic 103–143; BP diastolic 40–74; PULSE 75–97; RESP 12–23; TEMP 97.8–100.3; O2SAT 96–100
--- NOTE | 2025-02-11 06:49 | PROGRESS NOTE ---
Progress Note Dictate Providers to CC ~ Progress Note: No seizures overnight. Central Line/PICC still needed: N\A Jeong Indications Met/Not Met: F/C Indications Not Met Antibiotic Ordered?: No Subjective Subjective Comfortable. Objective Vitals Vital Signs Date Time Temp Pulse Resp B/P (MAP) Pulse Ox O2 Delivery O2 Flow Rate FiO2 02/11/25 06:00 100.0 82 21 116/71 (86) 99 Room Air 02/10/25 22:26 0 21 Lab Results: 02/10/25 1325 02/10/25 1900 Objective Heart: S1-2 reg Lungs: Clear Abdomen: Soft, non-tender, BS (+) Ext: No edema Neuro: sleepy but easly arousable and able to talk Problem\Assessment\Plan Additional Plan 1-Seizures -Continue home meds -Suspect issue with compliance however pt claims he IS compliant with his med -No need for LP Anticipate transfer soon A Leon Sepsis Screening Reassessment Date: Feb 11, 2025 MEÑO SMIMS MD Feb 11, 2025 06:49
[2025-02-11] MEDS: multivitamins, therapeutics tablet PO SCH (07:21)
--- NOTE | 2025-02-11 08:14 | ELECTROCARDIOGRAPH REPORT ---
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
[2025-02-11] MEDS: vancomycin/NS 1 GM ADD-VANTAGE 250 ML IV SCH (08:15)
--- NOTE | 2025-02-11 15:06 | PROGRESS NOTE- Residence ---
Progress Note - Resident Providers to CC Resident Creating Document: RENETTA DUMONT RES ~ Antibiotic Timeout Antibiotic Ordered?: No Subjective Patient seen and examined at bedside. Has not had anymore episodes of seizures since admission. States that he has been compliant with his medication and has not missed his doses. Questionable compliance. No new concerns or complaints. Objective Vital Signs Date Time Temp Pulse Resp B/P (MAP) Pulse Ox O2 Delivery O2 Flow Rate FiO2 02/11/25 10:25 15 100 Room Air 02/11/25 10:25 100.3 81 109/55 (73) 02/11/25 08:00 0 21 Result Diagram: 02/10/25 1325 02/10/25 1900 General: Awake and Alert, no acute distress. HEENT: Conjunctiva pink, Sclera clear, Mucus Membranes moist. Neck: Supple without masses and tenderness. Resp: Unlabored. Equal breath sounds bilaterally. Heart: Regular rhythm, normal S1 and S2, no rub, murmur or gallop. Abdomen: Soft and non tender no organomegaly. Normal bowel sounds x4 quadrant normoactive. No guarding or rigidity. Extremities: Normal ROM, no swelling, nontender. No cyanosis,clubbing or edema. DATA ENTRY COORDINATOR: No gross motor or sensory abnormalities. Skin: Warm and Dry. Assessment Assessment 29-year-old male with history of seizures presented the ED after having an episode of seizure at home. Seizures started at 6:00 a.m. actively seizing and has been having episodes of status epilepticus, has had 3 episodes of status so far in the ED, last episode was at 3:56 p.m. on the day of admission. Plan Plan Active seizures Multiple episodes of status epilepticus in the ED History of epilepsy Elevated anion gap metabolic acidosis Significantly elevated white count Missed his anti seizure medications last night and this morning Takes levetiracetam 1500 mg p.o. b.i.d., X cor be 200 p.o. daily. and lamotrigine 200 p.o. b.i.d. Received 5 mg intranasal Versed, 2 mg Ativan, 2 mg IV Versed and 1 g phenobarbital drip x1 in the ED He is currently postictal and nonverbal IV Ativan Q 5 minutes p.r.n. for active seizures Consulted telemetry neurology, appreciate recommendations Follow up with head CT, UA, U TOX, EEG 02/11/2025 Has been monitored in the ICU overnight and is currently transferred to the floor Has not had any episodes of seizures since yesterday's admission Continue p.o. home medications, Keppra 1500 b.i.d. lamotrigine 200 b.i.d. xcorpi 200 daily Strict seizure precautions to be maintained If he is seizure free and stable for the next 24 hours, likely to be discharged in the a.m. Med req done Code Status: Full code DVT prophylaxis: None Analgesia/sedation: None Line/tube: PIV GI prophylaxis: None Prognosis: Guarded Disposition: Continue medical management. Renetta Dumont MD. IM Resident PGY-2 Date of Service: Feb 11, 2025 Billing Provider: HARJINDER HANCOCK MD, ELIZABETH, RES Feb 11, 2025 15:06
[2025-02-11] MEDS: levetiracetam 250mg tablet PO SCH (19:07)
[2025-02-12 05:50] LABS: EOSINOPHILS # (AUTO) 0.2 X10'3 (0-0.9); HEMOGLOBIN 12.8 g/dl (14.0-17.9); MONOCYTES # (AUTO) 0.8 X10'3 (0-0.9); NEUTROPHILS # (AUTO) 5.2 X10'3 (1.8-7.7)
[2025-02-12 05:53] LABS: BASOPHILS % (AUTO) 0.2 % (0-1); EOSINOPHILS % (AUTO) 2.4 % (0-6); HEMATOCRIT 36.1 % (42.0-52.0); LYMPHOCYTES # (AUTO) 1.2 X10'3 (1.1-4.8); LYMPHOCYTES % (AUTO) 16.3 % (21-51); MEAN CORPUSCULAR HEMOGLOBIN 32.3 PG (27.0-31.0); MEAN CORPUSCULAR HGB CONC 35.5 g/dL (33.0-36.5); MEAN CORPUSCULAR VOLUME 90.8 FL (78-98); MEAN PLATELET VOLUME 8.4 FL (7.4-10.4); MONOCYTES % (AUTO) 10.6 % (2-12); NEUTROPHILS % (AUTO) 70.5 % (42-75); PLATELET COUNT 147 X10'3 (140-440); RED BLOOD COUNT 3.97 X10'6 (4.70-6.10); RED CELL DISTRIBUTION WIDTH 13.4 % (11.5-14.5); WHITE BLOOD COUNT 7.4 X10'3 (4.5-11.0)
[2025-02-12 06:00] VITALS: BP 116/50; PULSE 61; RESP 18; TEMP 97.6; O2SAT 100
[2025-02-12 06:15] LABS: ALBUMIN 3.1 G/DL (3.4-5.0); ANION GAP 6 (8-16); BLOOD UREA NITROGEN 10 MG/DL (7-18); BUN/CREATININE RATIO 15.4 (10.0-20.0); CALCIUM 8.4 MG/DL (8.5-10.1); CHLORIDE 104 MMOL/L (99-107); CREATININE 0.65 MG/DL (0.60-1.10); GLUCOSE 94 MG/DL (70-104); MAGNESIUM 1.7 MG/DL (1.5-2.4); POTASSIUM 3.6 MMOL/L (3.5-5.1); SODIUM 138 MMOL/L (135-145); TOTAL CARBON DIOXIDE 28.1 MMOL/L (24-32); eCRCL 171 ML/MIN; eGFR > 90 ML/MIN
[2025-02-12] MEDS: VANCOMYCIN LEVEL IV ONE (07:40)
[2025-02-12 07:45] VITALS: RESP 18; O2SAT 100
[2025-02-12 10:00] VITALS: BP 116/58; PULSE 62; RESP 18; TEMP 98.9; O2SAT 100
--- NOTE | 2025-02-12 15:48 | DISCHARGE SUMMARY-Residence ---
Discharge Summary Providers to CC Resident Creating Document: ALEX GUO, RES ~ Discharge Summary Admission Diagnosis: SEIZURES Hospital Course DATE OF ADMISSION: 02/08/2025 DATE OF DISCHARGE: 02/12/2025 Discharge Diagnosis\Comment: Active seizures Multiple episodes of status epilepticus in the ED History of epilepsy Elevated anion gap metabolic acidosis Significantly elevated white count Operations\Procedures: None Consultants: Neurologist. Control Clerk Repairs. Complications: None Condition on DC: Stable Continued Medications: Cenobamate (Xcopri) 200 Mg Tablet 1 TAB PO HS Lamotrigine (Lamotrigine) 200 Mg Tablet 1 TAB PO BID Levetiracetam (Levetiracetam) 750 Mg Tablet 2 TAB PO BID Discharge Summary: HPI: Patient is nonverbal and postictal unable to provide a history at this time. History gathered from ED sign-out and JOSÉ Kulkarni taking care of him. 29-year-old male with history of seizures presented the ED after having an episode of seizure at home. He came in this afternoon, seizures started earlier this morning at 6:00 a.m. actively seizing and has been having episodes of status epilepticus, has had 3 episodes of status epilepticus in the ED so far last episode was at 3:56 p.m.. He missed his dose of antiseizure medications last night and this morning. Received 5 mg intranasal Versed, 2 mg Ativan, 2 mg of Versed and 1 g phenobarbital drip x1. He had a temperature of 101.1 on arrival. He is currently shivering and has had multiple episodes of incontinence during the seizure episodes. Takes levetiracetam 750 (2) tablets p.o. b.i.d., lamotrigine 200 p.o. b.i.d. and xcorpi 200 p.o. daily. Hospital course: 29-year-old male patient admitted with active status epilepticus. Three episodes evidence at home and in emergency department. Upon vision van helper was consulted due to high risk of deterioration. The patient was admitted intensive care unit. The patient was monitored in ICU on up in the next day the patient was transferred to the floor. The patient received 5 mg of intranasal Versed, 2 mg of Ativan, 2 mg of IV Versed and 1 g of phenobarbital in the emergency department. Ativan Q 5 minutes PRN for active seizures was ordered. The patient did not have any other episode of seizure since the day of admission. Home medication Keppra, lamotrigine and excorpi was continued, as per patient he missed one dose of his excorpi one day previous to his admission. The patient was placed also on strict precautions. Evaluation for swallow was performed, the patient was able to tolerate on swallow diet. On 02/12/2025 the patient remained hemodynamically stable, eager to be discharged home. The p atient will be discharged home. Discharge course: The patient remained hemodynamically stable. The patient was discharged with the following instructions: Come back to the ER or call 911 if seizures, chest pain, fever sensation is evidenced. Continue your home medication as prescribed please. Follow up with your primary care physician within 1 week. Follow up with your neurologist within 2 weeks. Physical exam: General: Well alert, well oriented, not confused, not agitated, not in acute distress, well cooperated during the physical. HEENT: Conjunctive are pink, sclerae clear, no icterus, pupil is equal in both sides, reactive to light, no ear discharge, no pharyngeal erythema or an edema. Neck: Supple, no JVD, no lymphadenopathy and thyromegaly. Chest: Equal air entry on both lungs, no additional sounds no rhonchi no wheezing at the moment. Cardiovascular: S1-S2 regular sinus rhythm and, regular rate, no gallops, no rubs, no murmurs Abdomen: No visible peristalsis, Bowel sounds present on auscultation, soft, nontender, no guarding, no rigidity Extremities: No obvious deformities, no pitting edema bilaterally, capillary refill intact, peripheral pulsations are intact on both sides Central Nervous System: No focal neurological deficits, no motor or sensory weakness in all 4 extremities, could move all 4 extremities, 2+ deep tendon reflexes, negative Babinski. Musculoskeletal: No joint swelling, deformities, inflammations, and no scoliosis and back tenderness Skin: Warm and dry. Vital Signs Date Time Temp Pulse Resp B/P (MAP) Pulse Ox O2 Delivery O2 Flow Rate FiO2 02/12/25 10:00 98.9 62 18 116/58 (77) 100 Room Air 02/11/25 08:00 0 21 Laboratory Tests Test 02/10/25 16:04 02/10/25 16:12 02/10/25 18:29 02/10/25 19:00 Sodium Level 141 MMOL/L 142 MMOL/L Potassium Level 4.2 MMOL/L 3.5 MMOL/L Chloride Level 101 MMOL/L 109 MMOL/L Carbon Dioxide Level 14.5 MMOL/L 22.6 MMOL/L Anion Gap 26 10 Blood Urea Nitrogen 12 MG/DL 8 MG/DL Creatinine 1.11 MG/DL 0.79 MG/DL Estimated GFR/1.73 m2 79 ML/MIN > 90 ML/MIN BUN/Creatinine Ratio 10.8 10.1 Glucose Level 164 MG/DL 111 MG/DL Calcium Level 9.0 MG/DL 7.1 MG/DL Total Bilirubin 0.8 MG/DL Aspartate Amino Transf (AST/SGOT) 20 U/L Alanine Aminotransferase (ALT/SGPT) 28 U/L Alkaline Phosphatase 112 IU/L Total Protein 7.8 G/DL Albumin 4.2 G/DL 3.1 G/DL Globulin 3.6 G/DL Albumin/Globulin Ratio 1.2 Procalcitonin < 0.05 NG/ML Chemistry Comments Glucometer 159 mg/dl Blood Gas Specimen Type Arterial Blood Gas Puncture Site Lr O2 Saturation 95.8 % Arterial Blood pH (Temp corrected) 7.430 Arterial Blood pCO2 (Temp correct) 32.7 mmHg Arterial Blood pO2 (Temp corrected) 85.1 mmHg Arterial Blood PO2/FiO2 Ratio 3.60 mmHg/% Arterial Blood HCO3 20.9 mmol/L Arterial Blood Base Excess -2.0 mmol/L Arterial Blood Oxyhemoglobin 95.7 % Arterial Blood Carboxyhemoglobin 0.0 % Arterial Blood Methemoglobin 0.1 % Arterial Blood Deoxyhemoglobin 4.2 % Reese Test Modified Blood Gas Hemoglobin 13.5 G/dl Blood Gas Temperature 38.8 Blood Gas Modality Room air FiO2 21.0 mmHg/% Lactic Acid Level 1.0 MMOL/L Test 02/10/25 20:38 02/12/25 04:59 Urine Specimen Description Cln catch midstream Urine Color Yellow Urine Clarity Clear Urine pH 7.0 Urine Specific [place] 1.015 Urine Protein Negative mg/dl Urine Glucose (UA) Negative mg/dl Urine Ketones Negative mg/dl Urine Occult Blood Small Urine Nitrite Negative Urine Bilirubin Negative Urine Urobilinogen 0.2 E.U/dL Urine Leukocyte Esterase Negative Urine RBC 0-2 /HPF Urine WBC None seen /HPF Urine Squamous Epithelial Cells Few /LPF Urine Bacteria None seen /HPF Urine Culture Indicated Not ind Volume Urine Centrifuged 10 ml Urine Comment White Blood Count 7.4 X10'3 Red Blood Count 3.97 X10'6 Hemoglobin 12.8 g/dl Hematocrit 36.1 % Mean Corpuscular Volume 90.8 FL Mean Corpuscular Hemoglobin 32.3 PG Mean Corpuscular Hemoglobin Concent 35.5 g/dL Red Cell Distribution Width 13.4 % Platelet Count 147 X10'3 Mean Platelet Volume 8.4 FL Neutrophils (%) (Auto) 70.5 % Lymphocytes (%) (Auto) 16.3 % Monocytes (%) (Auto) 10.6 % Eosinophils (%) (Auto) 2.4 % Basophils (%) (Auto) 0.2 % Neutrophils # (Auto) 5.2 X10'3 Lymphocytes # (Auto) 1.2 X10'3 Monocytes # (Auto) 0.8 X10'3 Eosinophils # (Auto) 0.2 X10'3 Basophils # (Auto) 0.0 X10'3 CBC Comment Sodium Level 138 MMOL/L Potassium Level 3.6 MMOL/L Chloride Level 104 MMOL/L Carbon Dioxide Level 28.1 MMOL/L Anion Gap 6 Blood Urea Nitrogen 10 MG/DL Creatinine 0.65 MG/DL Estimated GFR/1.73 m2 > 90 ML/MIN BUN/Creatinine Ratio 15.4 Glucose Level 94 MG/DL Calcium Level 8.4 MG/DL Phosphorus Level 3.0 MG/DL Magnesium Level 1.7 MG/DL Albumin 3.1 G/DL Chemistry Comments Vancomycin Level Trough 1.6 ug/mL *Problems/Diagnosis: (1) Status epilepticus Status: Acute (2) Seizure Status: Acute Total Time Spent on D/C: > 30 Minutes Date of Service: Feb 12, 2025 Billing Provider: HARJINDER HANCOCK MD, FRANCO LUIS, RES Feb 12, 2025 15:48
[2025-02-15] MEDS ORDERED: folic acid 1mg tablet PO SCH (08:00)
== END 2025-02-12 14:00 | disposition home or self-care (01) | DRG 53 ==
LOC: ER 15:36 → ED HOLD 17:45 → UNDOADMIN 17:45 → ED HOLD 20:05 → CICU 2S 21:44 → ED HOLD 21:44 → ORTHO 4S 02-11 10:20 → CICU 2S 02-11 10:20 → UNDODISIN 02-12 14:00
PROVIDERS: ADMIT Internal Medicine; ATTEND Internal Medicine
DX: G40.901 Epilepsy, unspecified, not intractable, with status epilepticus (principal); E87.20 Acidosis, unspecified; D72.829 Elevated white blood cell count, unspecified; T50.996A Underdosing of other drugs, medicaments and biological substances, initial encounter; Y92.89 Other specified places as the place of occurrence of the external cause; Z91.199 Patient's noncompliance with other medical treatment and regimen due to unspecified reason
CPT/HCPCS: 36415; 36600; 70450; 71045; 80048; 80053; 80202; 81001; 82803; 82948; 83605; 83735; 84100; 84145; 85007; 85018; 85025; 87040; 93005; 96365; 96375; 99285; A6590; G0378; J0131; J0696; J1953; J2060; J2250; J2560; J3370; J3372; J7030; J7040; J7050; J7120

== ENCOUNTER 2025-04-27 20:00 | Emergency (ER) | payer MEDICAID ==
[~2025-04-27] VITALS: Ht 175.3 cm; Wt 72.7 kg
[~2025-04-27 20:00] MED LIST changes: -CENO1TAB PO; +CENO200T PO; -LAMO100T PO; +LAMO200T10 PO; -LEVE250T PO; +LEVE750T PO
[2025-04-27 20:04] VITALS: BP 144/60; PULSE 58; RESP 15; TEMP 96.8; O2SAT 99
== END 2025-04-27 23:54 | disposition left against medical advice (07) ==
LOC: ER 20:00
DX: S61.213A Laceration without foreign body of left middle finger without damage to nail, initial encounter (principal); X58.XXXA Exposure to other specified factors, initial encounter; Y93.89 Activity, other specified; Y92.89 Other specified places as the place of occurrence of the external cause; Y99.8 Other external cause status; Z53.21 Procedure and treatment not carried out due to patient leaving prior to being seen by health care provider

== ENCOUNTER 2025-04-29 08:56 | Emergency (ER) | payer MEDICAID ==
[~2025-04-29] VITALS: Ht 180.3 cm; Wt 69.0 kg
[2025-04-29 09:06] VITALS: BP 126/67; PULSE 66; RESP 16; TEMP 97.7; O2SAT 99
--- NOTE | 2025-04-29 09:18 | Physician Documentation ---
History of Present Illness ~ Chief Complaint: Laceration Stated Complaint: FINGER LAC Time Seen by MD: 09:08 OK to notify your PCP?: Yes Primary Medical Doctor: Sandra GUAMAN, neurologist at [facility] Source: patient Mode of Arrival: POV Exam Limitations: no limitations HPI 29-year-old male with chief complaint lacerations to his right index and middle finger that occurred two days ago. He states he did come here after he cut his fingers but states he ended up leaving without being seen. Last tetanus was 1year ago. Able to move fingers normally but reports pain. Has been keeping covered with gauze. Tetanus Within 5 Years: No Medication Reconciliation Allergies: Coded Allergies: No Known Allergies (Unverified , 04/29/25) Scheduled Cenobamate (Xcopri), 1 TAB PO HS, (Reported) Lamotrigine (Lamotrigine), 1 TAB PO BID, (Reported) Levetiracetam (Levetiracetam), 2 TAB PO BID, (Reported) Past Medical History Past Medical History: Seizures Past Surgical History: noncontributory Patient History: No Family History of: (CABG) Coronary artery bypass grafting (CAD) Coronary arteriosclerosis (CHF) Congestive heart failure (COPD) Chronic obstructive lung disease (CVA) Cerebrovascular accident (Cancer) Malignant carcinoid tumor (DM Type 2) Diabetes mellitus type 2 (DM Type1) Diabetes mellitus type 1 ([place]) Myocardial infarction (PVD) Peripheral vascular disease (TIA) Transient ischemic attack Alzheimer's disease Aortic aneurysm Asthma Cardiac arrest Hypercholesterolemia Alcohol Use: None Drug Use: none Lives with: Mother Lives In: Home Review of Systems All Other Systems at this time: Reviewed and Negative Physical Exam Vital Signs: Temperature: 97.7, Source: Temporal, Heart Rate: 66, Respiratory Rate: 16, BP: 126/67, Pulse Oximetry: 99, Weight: 69.000 Oxygen Flow Rate: 0 Physical Exam MSK: RIGHT INDEX FINGER THE TIP OF THE FINGER IS AVULSED, WOUND BED IS BEEFY RED IN COLOR, DOES NOT INVOLVE NAIL PLATE RIGHT MIDDLE FINGER PARTIALLY CIRCUMFERENTIAL LACERATION AROUND THE PAD OF THE FINGER TIP DOES NOT INVOLVE THE NAIL PLATE. ACTIVELY BLEEDING. General Appearance: Alert, WD/WN. NAD. HEENT: NCAT, PERRL, EOMI. Neck: Supple, trachea midline. Cardiovascular: RRR. No m/r/g. Lungs: CTAB. Breathing unlabored Neurological: Alert and oriented x4, normal gait. Psychiatric: Affect congruent with mood. Procedures Splinting Location: right index and middle finger Pre-Made Type: digit splints Pre-Proc Neuro Vasc Exam: normal Post-Proc Neuro Vasc Exam: normal Tolerated Procedure Well?: yes, no complications Laceration/Wound Repair Laceration : Location: right middle finger Length (cm): 1 Anesthesia: none Foreign Body: not identified Repaired: skin Layer Closure?: No Dressing Applied: simple Tolerated Procedure Well?: yes, no complications Procedure Note simple dressed placed along with digit splint laceration not closed due to delayed presentation Progress Results/Orders Results/Orders Orders - EITAN SANTIAGO General Nursing Order (04/29/25 09:20) Vital Signs 04/29/25 09:06 Temp 97.7 Pulse 66 Resp 16 B/P (MAP) 126/67 Pulse Ox 99 O2 Flow Rate 0 Medical Decision Making Differential Dx:Considerations: Include: Abrasion, Avulsion, Contusion, Laceration, Fracture, Hematoma, Neurovascular injury, Retained foreign body Departure Time of Disposition: 09:19 Disposition: 01 HOME / SELF CARE / HOMELESS Impression: Primary Impression: Laceration Additional Impression: Skin avulsion Condition: Stable Discharge Instructions: Laceration Care, Adult, [id number] Additional Instructions: wound care discussed if increasing pain, redness, swelling-->these are concerning symptoms of infection and you would need to return to ER right away no evidence of infection at this time; however, i sent antibiotic to pharmacy to try and prevent infection due to being on your finger tips and not being able to be closed due to delayed presentation Referrals: NO PRIMARY CARE PROVIDER (PCP) Prescriptions Cephalexin*Monohydrate* (Keflex*) 500 Mg Capsule 1 CAP PO Q8H for 5 Days, #15 CAP Prov: EITAN SANTIAGO 04/29/25 Education Educated: Patient Educated regarding: diagnosis, treatment, need for follow up Signature Scribe Signature: letha Attestation: EITAN Fall Apr 29, 2025 09:18
[2025-04-29] MEDS ORDERED: CEPH-585 PO (10:01)
== END 2025-04-29 10:17 | disposition home or self-care (01) ==
LOC: ER 08:56
DX: S61.210A Laceration without foreign body of right index finger without damage to nail, initial encounter (principal); Z79.899 Other long term (current) drug therapy; W26.0XXA Contact with knife, initial encounter; Y93.89 Activity, other specified; Y92.89 Other specified places as the place of occurrence of the external cause; Y99.8 Other external cause status
CPT/HCPCS: 12001; 29130; 99283